=== PATIENT | male | born 1960 | race Caucasian/White ===

== ENCOUNTER 2016-04-08 20:21 | Emergency (ER) | payer OTHER ==
[~2016-04-08] VITALS: Ht 170.2 cm; Wt 59.9 kg
[~2016-04-08 20:21] MED LIST: ADVAIR 250/501 DISK IH; ALBUTEROL MDI IH; Bacid PO; DULERA 200 MCG/13 GM IH; DULERA IH; DUONEB 2.5-0.5 M3 ML AEROSOL; Flagyl PO; LEVAQUIN750 MG PO; PREDNISONE10 MG PO; PREDNISONE50 MG PO; SPIRIVA1 INHALATI IH; SYMBICORT60 INHALAT IH; TYLENOL WITH C1 EACH PO; VENTOLIN HFA18 GM IH; ZITHROMAX Z-PA250 MG PO; Zithromax PO
[2016-04-08 21:19] LABS: MCH 30.1 PG (29.0-34.0); MCHC 32.4 G/DL (30.0-36.0); MCV 93.1 FL (86-99); MEAN PLAT.VOLUME 11.3 uM^3 (9.0-12.4); PLATELET COUNT 156 K/uL (156-360); RBC DIS.WIDTH-CV 13.2 % (11.8-14.6); RBC DIS.WIDTH-SD 43.9 % (39-53); RED BLOOD COUNT 4.08 M/uL (4.00-5.50); WHITE BLOOD COUNT 5.4 K/uL (4.1-10.2)
[2016-04-08 21:26] LABS: CHLORIDE 107 mEq/L (99-109); POTASSIUM 4.2 mEq/L (3.7-5.4); SODIUM 146 mEq/L (136-147)
[2016-04-08 21:28] LABS: GLUCOSE 92 mg/dL (70-99)
[2016-04-08 21:30] LABS: ANION GAP 10 MEQ/L (2-14)
[2016-04-08 21:32] LABS: GFR ESTIMATE (CALCULATED) > 59 mL/min/
[2016-04-08 21:33] LABS: UREA NITROGEN (BUN) 18 mg/dL (9-23)
[2016-04-08] MEDS ORDERED: FLOMAX0.4 MG PO (23:00)
[2016-04-08] MEDS ORDERED: CIPRO500 MG PO (23:00)
[2016-04-08 23:28] VITALS: BP 121/82
== END 2016-04-08 23:30 | disposition home or self-care (01) ==
LOC: EME 20:21
DX: K40.90 Unilateral inguinal hernia, without obstruction or gangrene, not specified as recurrent (principal); R30.0 Dysuria; J44.9 Chronic obstructive pulmonary disease, unspecified; I25.2 Old myocardial infarction; K21.9 Gastro-esophageal reflux disease without esophagitis; Z87.442 Personal history of urinary calculi; F17.200 Nicotine dependence, unspecified, uncomplicated
CPT/HCPCS: 74176; 80048; 81003; 85027; 94640; 99281; 99284

== ENCOUNTER 2016-08-17 13:11 | Emergency (ER) | payer OTHER ==
[~2016-08-17] VITALS: Ht 170.2 cm; Wt 58.8 kg
[~2016-08-17 13:11] MED LIST changes: +CIPRO500 MG PO; +FLOMAX0.4 MG PO
[2016-08-17 13:47] LABS: HEMATOCRIT 39.3 % (38.0-50.0); MCH 29.8 PG (29.0-34.0); MCHC 32.6 G/DL (30.0-36.0); MCV 91.4 FL (86-99); MEAN PLAT.VOLUME 10.6 uM^3 (9.0-12.4); PLATELET COUNT 163 K/uL (156-360); RBC DIS.WIDTH-CV 13.3 % (11.8-14.6); WHITE BLOOD COUNT 9.9 K/uL (4.1-10.2)
[2016-08-17 13:55] LABS: CHLORIDE 105 mEq/L (99-109); POTASSIUM 3.3 mEq/L (3.7-5.4); SODIUM 141 mEq/L (136-147)
[2016-08-17 13:56] LABS: GLUCOSE 95 mg/dL (70-99)
[2016-08-17 13:58] LABS: ANION GAP 10 MEQ/L (2-14)
[2016-08-17 14:00] LABS: GFR ESTIMATE (CALCULATED) > 59 mL/min/
[2016-08-17 14:01] LABS: UREA NITROGEN (BUN) 14 mg/dL (9-23)
[2016-08-17 14:29] LABS: D-DIMER ELISA 0.35 mg/L FEU (< 0.57)
[2016-08-17 14:38] LABS: TROP-I INTERPRETATION NEGATIVE; TROPONIN-I 0.02 ng/mL (0.0-0.30)
[2016-08-17] MEDS ORDERED: ATROVENT H200 INHALA IH (15:24)
[2016-08-17] MEDS ORDERED: ZITHROMAX250 MG PO (15:24)
[2016-08-17] MEDS ORDERED: DELTASONE20 M1 PO (15:24)
[2016-08-17 16:24] VITALS: BP 104/67
[2016-08-17] MEDS ORDERED: COLACE100 MG PO (21:42)
[2016-08-17] MEDS ORDERED: CARAFATE1 GM PO (21:43)
[2016-08-17] MEDS ORDERED: ENULOSE10 GM/15 M PO (21:43)
== END 2016-08-17 16:24 | disposition home or self-care (01) ==
LOC: EME → EDBD 13:11 → EDSEX 13:11 → EME 16:24
DX: J44.0 Chronic obstructive pulmonary disease with (acute) lower respiratory infection (principal); J40 Bronchitis, not specified as acute or chronic; I25.2 Old myocardial infarction; Z99.81 Dependence on supplemental oxygen; Z87.442 Personal history of urinary calculi; Z87.891 Personal history of nicotine dependence
CPT/HCPCS: 71020; 80048; 84484; 85027; 85379; 94640; 99281; 99284; J1100; J3105; J7512; J7644

== ENCOUNTER 2016-08-17 20:17 | Inpatient (IN) | payer OTHER ==
[~2016-08-17] VITALS: Ht 170.2 cm; Wt 66.6 kg
[~2016-08-17 20:17] MED LIST changes: +ATROVENT H200 INHALA IH; +DELTASONE20 M1 PO; +ZITHROMAX250 MG PO
[2016-08-17 20:43] LABS: HEMATOCRIT 43.2 % (38.0-50.0); MCH 30.1 PG (29.0-34.0); MCHC 32.4 G/DL (30.0-36.0); MCV 92.9 FL (86-99); MEAN PLAT.VOLUME 10.7 uM^3 (9.0-12.4); RBC DIS.WIDTH-CV 13.4 % (11.8-14.6); RED BLOOD COUNT 4.65 M/uL (4.00-5.50)
[2016-08-17 20:49] LABS: PLATELET COUNT 212 K/uL (156-360); WHITE BLOOD COUNT 13.9 K/uL (4.1-10.2)
[2016-08-17 21:08] LABS: CHLORIDE 104 mEq/L (99-109); SODIUM 140 mEq/L (136-147)
[2016-08-17 21:11] LABS: TROP-I INTERPRETATION NEGATIVE
[2016-08-17 21:11] LABS: ANION GAP 12 MEQ/L (2-14)
[2016-08-17 21:13] LABS: GFR ESTIMATE (CALCULATED) > 59 mL/min/
[2016-08-17 21:14] LABS: GLUCOSE 119 mg/dL (70-99); POTASSIUM 5.5 mEq/L (3.7-5.4); UREA NITROGEN (BUN) 21 mg/dL (9-23)
[2016-08-17 21:35] LABS: CARBON DIOXIDE (BICARBONATE) 32.8 MEQ/L (20-31)
[2016-08-17] MEDS ORDERED: COLACE100 MG PO (21:42)
[2016-08-17] MEDS ORDERED: CARAFATE1 GM PO (21:43)
[2016-08-17] MEDS ORDERED: ENULOSE10 GM/15 M PO (21:43)
[2016-08-17 23:28] VITALS: BP 125/85
[2016-08-18] VITALS (7 sets, daily range): BP systolic 92–138; BP diastolic 59–86
[2016-08-18 07:26] LABS: BASE EXCESS 1.1 mEq/L (-3 to +3); BICARBONATE 28.7 mEq/L (22-26); COMMENTS - BLOOD GASES A+C+; DEVICE HHFNC; FI02 60 %; METHEMOGLOBIN 1.5 % (0-1.5); O2 FLOW 30 L/MIN; PCO2 57 mm Hg (35-45); PO2 68 mm Hg (80-100); SITE RR; TOTAL RESP RATE 30 resp/min; pH 7.31 (7.35-7.45)
[2016-08-19 04:08] VITALS: BP 107/58
[2016-08-19 07:02] VITALS: BP 115/69
[2016-08-19 07:28] LABS: HEMATOCRIT 38.9 % (38.0-50.0); MCH 29.5 PG (29.0-34.0); MCHC 32.1 G/DL (30.0-36.0); MCV 91.7 FL (86-99); MEAN PLAT.VOLUME 10.7 uM^3 (9.0-12.4); PLATELET COUNT 170 K/uL (156-360); RBC DIS.WIDTH-CV 13.3 % (11.8-14.6); RED BLOOD COUNT 4.24 M/uL (4.00-5.50); WHITE BLOOD COUNT 13.3 K/uL (4.1-10.2)
[2016-08-19 07:58] LABS: ANION GAP 10 MEQ/L (2-14); CHLORIDE 102 MEQ/L (99-109); GFR ESTIMATE (CALCULATED) > 59 mL/min/; GLUCOSE 127 mg/dL (70-99); POTASSIUM 4.4 MEQ/L (3.7-5.4); SAMPLE HEMOLYSIS CHECK 0; SAMPLE ICTERIC CHECK 0; SAMPLE LIPEMIA CHECK 0; SODIUM 141 MEQ/L (136-147); UREA NITROGEN (BUN) 28 mg/dL (9-23)
[2016-08-19 08:14] LABS: EOSINOPHIL (%) 0 % (0-5); IMMATURE GRANULOCYTE (%) 0.5 % (0.0-0.7); IMMATURE GRANULOCYTE COUNT 0.1 K/uL; INSTRUMENT ABS NEUTROPHIL CT 11.2 K/uL; LYMPHOCYTE COUNT 1.2 K/uL (1.0-2.8); MONOCYTE (%) 6.8 % (3-12); MONOCYTE COUNT 0.9 K/uL (0-0.8); NEUTROPHIL (%) 83.9 % (45-76); NEUTROPHIL COUNT 11.2 K/uL (1.8-6.4)
[2016-08-19 12:03] VITALS: BP 116/69
[2016-08-19 17:02] VITALS: BP 115/62
[2016-08-19 19:04] VITALS: BP 109/62
[2016-08-19 22:32] VITALS: BP 95/53
[2016-08-20 04:39] VITALS: BP 114/70
[2016-08-20 07:14] LABS: EOSINOPHIL (%) 0 % (0-5); HEMATOCRIT 34.7 % (38.0-50.0); IMMATURE GRANULOCYTE (%) 0.7 % (0.0-0.7); IMMATURE GRANULOCYTE COUNT 0.1 K/uL; MCH 30.1 PG (29.0-34.0); MCHC 33.4 G/DL (30.0-36.0); MCV 89.9 FL (86-99); MEAN PLAT.VOLUME 11.2 uM^3 (9.0-12.4); MONOCYTE (%) 6.2 % (3-12); MONOCYTE COUNT 0.7 K/uL (0-0.8); NEUTROPHIL (%) 84.2 % (45-76); PLATELET COUNT 173 K/uL (156-360); RBC DIS.WIDTH-CV 13.5 % (11.8-14.6); RBC DIS.WIDTH-SD 44.6 % (39-53); RED BLOOD COUNT 3.86 M/uL (4.00-5.50); WHITE BLOOD COUNT 11.9 K/uL (4.1-10.2)
[2016-08-20 08:11] VITALS: BP 121/57
[2016-08-20 11:48] VITALS: BP 134/76
[2016-08-20 17:00] VITALS: BP 118/56
[2016-08-20 19:20] VITALS: BP 128/72
[2016-08-20 23:26] VITALS: BP 128/79
[2016-08-21 03:05] VITALS: BP 106/60
[2016-08-21 06:50] LABS: EOSINOPHIL (%) 0 % (0-5); HEMATOCRIT 33.2 % (38.0-50.0); IMMATURE GRANULOCYTE (%) 0.2 % (0.0-0.7); INSTRUMENT ABS NEUTROPHIL CT 5.9 K/uL; LYMPHOCYTE COUNT 1.7 K/uL (1.0-2.8); MCH 29.9 PG (29.0-34.0); MCHC 32.8 G/DL (30.0-36.0); MONOCYTE (%) 7.8 % (3-12); MONOCYTE COUNT 0.6 K/uL (0-0.8); NEUTROPHIL (%) 71.5 % (45-76); NEUTROPHIL COUNT 5.9 K/uL (1.8-6.4); PLATELET COUNT 164 K/uL (156-360); RBC DIS.WIDTH-CV 13.4 % (11.8-14.6); RED BLOOD COUNT 3.65 M/uL (4.00-5.50)
[2016-08-21 07:12] LABS: ANION GAP 5 MEQ/L (2-14); CHLORIDE 102 MEQ/L (99-109); GFR ESTIMATE (CALCULATED) > 59 mL/min/; GLUCOSE 113 mg/dL (70-99); SAMPLE HEMOLYSIS CHECK 0; SAMPLE ICTERIC CHECK 0; SAMPLE LIPEMIA CHECK 0; SODIUM 141 MEQ/L (136-147); UREA NITROGEN (BUN) 15 mg/dL (9-23); WHITE BLOOD COUNT 8.2 K/uL (4.1-10.2)
[2016-08-21 07:14] LABS: POTASSIUM 3.4 MEQ/L (3.7-5.4)
[2016-08-21 07:53] VITALS: BP 119/73
[2016-08-21 11:20] VITALS: BP 123/72
[2016-08-21] MEDS ORDERED: LORAZEPAM0.5 MG PO (12:52)
[2016-08-21] MEDS ORDERED: PREDNISONE10 MG PO (12:52)
[2016-08-21] MEDS ORDERED: FAMOTIDINE20 MG PO (12:52)
[2016-08-21] MEDS ORDERED: LEVOFLOXACIN500 MG PO (12:52)
== END 2016-08-21 13:47 | disposition home health service (06) | DRG 190 ==
LOC: EME → EDBD 20:17 → EME 20:17 → EDOF 22:20 → 4EAST 22:20
PROVIDERS: Emergency Medicine; Family Medicine; Internal Medicine Pulmonary Disease
DX: J44.1 Chronic obstructive pulmonary disease with (acute) exacerbation (principal); J96.22 Acute and chronic respiratory failure with hypercapnia; Z99.81 Dependence on supplemental oxygen; J20.9 Acute bronchitis, unspecified; F40.240 Claustrophobia; F41.9 Anxiety disorder, unspecified; F10.20 Alcohol dependence, uncomplicated; F17.211 Nicotine dependence, cigarettes, in remission
CPT/HCPCS: 36600; 71010; 71020; 80048; 80048 91; 82803; 84484; 85025; 85027; 85379; 93005; 94010; 94640; 94640 76; 94644; 94760; 94799; 99202; 99281; 99284; J1100; J1650; J1956; J2930; J3105; J7030; J7512; J7644